=== PATIENT | female | born 1975 | race Caucasian/White ===

== ENCOUNTER → 2018-09-17 | Outpatient (CLI) | payer BC ==
[~2018-09-17] MED LIST: CIPR-225 PO; CITA10TA70 PO; HYDR-3583 PO; HYDR-4226 PO; IBP600T1 PO; IRON1CAP10 PO; MDR10T; MEDR5TAB PO; METF-397 PO; METR500T PO; MTF500T; MULT-68 PO; NAPR550T; SPIR100T4 PO; [UNRECOGNIZED DRUG - OTHER] PO; tylenol #3 PO
--- NOTE | 2018-09-17 21:23 | Diagnostic Imaging Report ---
INDICATION: Routine screening. No prior mammograms are available for comparison. This is a baseline mammogram. 2-D and 3-D bilateral screening mammography was performed with computer-aided Detection (CAD) system. FINDINGS: Scattered fibroglandular densities are identified bilaterally. There is a slightly lobulated circumscribed density in the upper-outer aspect of the right breast at posterior depth. This has fairly benign features, but further evaluation with ultrasound is recommended. This may represent a cluster of cysts. No spiculated mass is identified. No malignant-appearing microcalcifications are seen. The axillae are unremarkable. IMPRESSION: Lobulated density in the upper-outer right breast posterior depth, perhaps a cluster of cysts. Further evaluation with ultrasound is recommended for confirmation. ACR BI-RADS Category 0: Incomplete. (Needs additional imaging evaluation). Result letter will be mailed to the patient. Note: At least 10% of breast cancer is not imaged by mammography. Dictated by: Dictated on workstation # [id number]
== END ==
LOC: RAD 09:03
PROVIDERS: ATTEND Obstetrics & Gynecology
DX: Z12.31 Encounter for screening mammogram for malignant neoplasm of breast (principal); R92.8 Other abnormal and inconclusive findings on diagnostic imaging of breast
CPT/HCPCS: 77067

== ENCOUNTER → 2018-09-23 | Outpatient (CLI) | payer BC ==
--- NOTE | 2018-09-23 19:44 | Diagnostic Imaging Report ---
INDICATION: Right breast density. Study is performed for further evaluation. Correlation is made with recent screening study from 09/17/2018. FINDINGS: Sonographic interrogation of the upper and outer aspect of right breast was performed. There is a lymph node at the 9 o'clock location of the right breast 9 cm from the nipple measuring 9 mm x 5 mm x 10 mm. This likely accounts for the density noted mammographically. No other sonographic abnormalities are seen. IMPRESSION: Intraparenchymal lymph node 9 o'clock location of the right breast, likely accounting for the mammographic density. Patient may return to routine annual screening mammography. ACR BI-RADS Category 2: Benign findings. Dictated by: Dictated on workstation # [id number]
== END ==
LOC: RAD 09:31
PROVIDERS: ATTEND Obstetrics & Gynecology
DX: R92.2 Inconclusive mammogram (principal)

== ENCOUNTER → 2021-01-17 | Outpatient (CLI) | payer BC ==
--- NOTE | 2021-01-17 16:47 | Diagnostic Imaging Report ---
Digital mammogram bilateral screening. This study was compared to the prior exam of 09/17/2018. At this time, there are no current complaints. The previous mammogram noted a nodular density in the upper outer aspect of the right, approximately 9 cm from the nipple. The ultrasound examination of this area performed on 09/23/2018 suggested there was a 9 x 5 x 10 mm lymph node in this portion of the right breast. On this study, that finding is again evident. This nodular asymmetry now measures 9.2 x 11 mm as opposed to 6.7 x 12 mm on the previous exam. This nodule still has a generally benign appearance. The overall appearance of the breasts has not changed significantly otherwise. There is no primary or secondary sign of malignancy noted. IMPRESSION: 1. There is no evidence for malignancy. 2. The nodule in the upper outer aspect of the right breast seen previously is again evident and does not appear to have changed significantly. Most likely this is a benign process such as a lymph node. 3. The patient should have her annual bilateral screening mammogram on schedule in January of 2022. ACR BI-RADS Category 1: Negative. Result letter will be mailed to the patient. Note: At least 10% of breast cancer is not imaged by mammography. Dictated by: Dictated on workstation # [id number]
== END ==
LOC: RAD 15:30
PROVIDERS: ATTEND Obstetrics & Gynecology
DX: Z12.31 Encounter for screening mammogram for malignant neoplasm of breast (principal); R91.1 Solitary pulmonary nodule
CPT/HCPCS: 77063; 77067